=== PATIENT | male | born 1995 | race Caucasian/White ===

== ENCOUNTER 2024-11-08 11:09 | Inpatient (IN) | payer SELFPAY ==
[~2024-11-08] VITALS: Ht 177.8 cm; Wt 173.3 kg
[2024-11-08 11:43] LABS: BASOPHILS % 0.4 % (0.0-2.0); EOSINOPHILS % 2.8 % (0.0-5.0); HEMATOCRIT. 43.4 % (42.0-52.0); LYMPHOCYTES % 28.1 % (20.0-50.0); MEAN CORPUSCULAR HEMOGLOBIN 30.1 pg (28.0-32.0); MEAN CORPUSCULAR HGB CONC 34.5 g/dL (31.0-37.0); MEAN PLATELET VOLUME 8.3 fl (7.4-10.4); MONOCYTES % 6.1 % (2.0-8.0); NEUTROPHILS % 62.6 % (40.0-76.0); PLATELET 390 x1000/uL (130-400); RED BLOOD CELL COUNT 4.99 mill/uL (4.7-6.1); RED CELL DISTRIBUTION WIDTH 13.1 % (11.6-14.6); WHITE BLOOD COUNT 10.5 x1000/uL (4.5-11.0)
[2024-11-08 11:53] LABS: CHLORIDE 103 mEq/L (98-107); POTASSIUM 3.9 mEq/L (3.5-5.1); SODIUM 138 mEq/L (136-145)
[2024-11-08 11:54] LABS: CARBON DIOXIDE 27 mEq/L (21-32)
[2024-11-08 11:55] LABS: CALCIUM 9.6 mg/dL (8.7-10.4)
[2024-11-08 11:59] LABS: CREATININE 1.1 mg/dL (0.6-1.3); GLUCOSE 180 mg/dL (70-105); UREA NITROGEN BLOOD 11 mg/dL (9-23)
[2024-11-08 12:08] LABS: TROPONIN I HIGH SENSITIVITY < 4 ng/L (3.0-53)
[2024-11-08 16:00] VITALS: BP 137/87; PULSE 100; RESP 18; TEMP 36.5; O2SAT 96
[2024-11-08 17:53] LABS: TROPONIN I HIGH SENSITIVITY < 4 ng/L (3.0-53)
[2024-11-08 20:00] VITALS: BP 160/96; PULSE 83; RESP 17; TEMP 36.5; O2SAT 93
[2024-11-08] MEDS ORDERED: DOCUSATE SODIUM 100MG CAPSULE PO PRN (21:45)
[2024-11-08] MEDS ORDERED: MAGNESIUM/ALUMINUM HYDROXIDE/SIMETHICONE 30ML UDC PO PRN (21:45)
[2024-11-08] MEDS ORDERED: AMLODIPINE 10MG TABLET PO SCH (21:45)
[2024-11-08] MEDS ORDERED: ONDANSETRON HCL 4MG/2ML INJ IV PRN (21:45)
[2024-11-08] MEDS ORDERED: POTASSIUM CHLORIDE 20MEQ TABLET SR PO PRN (21:45)
[2024-11-08] MEDS ORDERED: HYDROCODONE/ACETAMINOPHEN 5/325MG TABLET PO PRN (21:45)
[2024-11-08] MEDS ORDERED: DEXTROSE 50% WATER 50ML SYRINGE IV PRN ×3 (21:45)
[2024-11-08] MEDS ORDERED: CLONIDINE 0.1MG TABLET PO PRN (21:45)
[2024-11-08] MEDS ORDERED: ACETAMINOPHEN 325MG TABLET PO PRN (21:45)
[2024-11-08] MEDS ORDERED: IPRATROPIUM/ALBUTEROL 0.5-3(2.5)MG/3ML NEB HHN PRN (21:45)
[2024-11-09] VITALS (7 sets, daily range): BP systolic 124–151; BP diastolic 62–89; PULSE 60–90; RESP 17–20; TEMP 36.2–36.6; O2SAT 92–97
[2024-11-09] MEDS: BLOOD SUGAR DIAGNOSTIC STRIP TEST SCH (06:14)
[2024-11-09] MEDS: INSULIN LISPRO 100 UNITS/ML SUBCUT SCH (06:20)
[2024-11-09 07:20] LABS: BASOPHILS % 0.3 % (0.0-2.0); HEMATOCRIT. 42.1 % (42.0-52.0); HEMOGLOBIN. 14.3 g/dL (14.0-18.0); LYMPHOCYTES % 28.7 % (20.0-50.0); MEAN CORPUSCULAR HEMOGLOBIN 29.5 pg (28.0-32.0); MEAN CORPUSCULAR HGB CONC 33.9 g/dL (31.0-37.0); MEAN CORPUSCULAR VOLUME 86.9 fL (80.0-94.0); MEAN PLATELET VOLUME 8.5 fl (7.4-10.4); MONOCYTES % 9.3 % (2.0-8.0); NEUTROPHILS % 58.7 % (40.0-76.0); PLATELET 357 x1000/uL (130-400); RED BLOOD CELL COUNT 4.85 mill/uL (4.7-6.1); RED CELL DISTRIBUTION WIDTH 13.6 % (11.6-14.6); WHITE BLOOD COUNT 9.1 x1000/uL (4.5-11.0)
[2024-11-09 07:32] LABS: CARBON DIOXIDE 29 mEq/L (21-32); CHLORIDE 101 mEq/L (98-107); POTASSIUM 4.2 mEq/L (3.5-5.1); SODIUM 138 mEq/L (136-145); TROPONIN I HIGH SENSITIVITY 5 ng/L (3.0-53)
[2024-11-09 07:33] LABS: CALCIUM 8.9 mg/dL (8.7-10.4)
[2024-11-09 07:36] LABS: T4 FREE 1.07 ng/dL (0.89-1.76)
[2024-11-09 07:37] LABS: CREATININE 0.9 mg/dL (0.6-1.3); PROTEIN TOTAL 6.8 g/dL (6.0-8.3); TRIGLYCERIDE 143 mg/dL (0-150)
[2024-11-09 07:38] LABS: GLUCOSE 116 mg/dL (70-105); UREA NITROGEN BLOOD 9 mg/dL (9-23)
[2024-11-09 07:39] LABS: ALANINE AMINOTRANSFERASE 59 IU/L (10-49); ALBUMIN 3.8 g/dL (3.2-4.8); ASPARTATE AMINOTRANSFERASE 38 IU/L (<34); LDL CHOLESTEROL 138 mg/dL (5-100)
[2024-11-09 07:40] LABS: BILIRUBIN DIRECT 0.3 mg/dL (<=3.0); BILIRUBIN TOTAL 1.1 mg/dL (0.1-1.0); CHOLESTEROL 183 mg/dL (<200); HDL CHOLESTEROL 39 mg/dL (>55); PHOSPHORUS 3.5 mg/dL (2.5-4.9)
[2024-11-09] MEDS: AMLODIPINE 5MG TABLET PO SCH (09:01)
[2024-11-09 10:39] LABS: CLARITY URINE CLEAR (CLEAR); COLOR URINE YELLOW (YELLOW); GLUCOSE URINE NEGATIVE (NEGATIVE); KETONES URINE NEGATIVE (NEGATIVE); LEUKOCYTE ESTERASE URINE NEGATIVE (NEGATIVE); NITRITE URINE NEGATIVE (NEGATIVE); OCCULT BLOOD URINE NEGATIVE (NEGATIVE); PH URINE 5.5 (4.5-8.0); PROTEIN URINE 3+ (NEGATIVE); SPECIFIC GRAVITY URINE 1.012 (1.005-1.030); UROBILINOGEN URINE 0.2 E.U./dL (0.2-1.0)
[2024-11-09 11:08] LABS: FINE GRANULAR CASTS URINE 0-5 /lpf; HYALINE CASTS URINE 0-5 /lpf
[2024-11-09 11:11] LABS: WBC URINE NONE SEEN /hpf (0-2)
[2024-11-09 11:12] LABS: BACTERIA URINE TRACE; RBC URINE 0-2 /hpf (0-2)
[2024-11-09 11:16] LABS: SQUAMOUS EPITHELIAL CELL URINE NONE SEEN /lpf (RARE/1+)
[2024-11-09 11:24] LABS: *AMPHETAMINES SCREEN URINE NEGATIVE (NEGATIVE); *BARBITURATES SCREEN URINE NEGATIVE (NEGATIVE); *BENZODIAZEPINES SCREEN URINE NEGATIVE (NEGATIVE)
[2024-11-09 11:25] LABS: *COCAINE SCREEN URINE NEGATIVE (NEGATIVE); CANNABINOID URINE SCREEN NEGATIVE (NEGATIVE); ECSTASY MDMA SCREEN URINE NEGATIVE (NEGATIVE); METHADONE URINE SCREEN NEGATIVE (NEGATIVE); OPIATES URINE SCREEN NEGATIVE (NEGATIVE); PHENCYCLIDINE URINE SCREEN NEGATIVE (NEGATIVE)
[2024-11-09] MEDS: ENOXAPARIN 40MG/0.4ML SYR SUBCUT SCH (14:32)
[2024-11-10] VITALS: BP 107/70; PULSE 70; RESP 18; TEMP 36.3; O2SAT 98
[2024-11-10 04:00] VITALS: BP 111/61; PULSE 64; RESP 17; TEMP 36.3; O2SAT 99
[2024-11-10 06:37] LABS: BASOPHILS % 0.4 % (0.0-2.0); EOSINOPHILS % 3.3 % (0.0-5.0); HEMATOCRIT. 43.2 % (42.0-52.0); HEMOGLOBIN. 14.7 g/dL (14.0-18.0); LYMPHOCYTES % 29.4 % (20.0-50.0); MEAN CORPUSCULAR HEMOGLOBIN 29.6 pg (28.0-32.0); MEAN PLATELET VOLUME 8.6 fl (7.4-10.4); MONOCYTES % 8.6 % (2.0-8.0); NEUTROPHILS % 58.3 % (40.0-76.0); PLATELET 377 x1000/uL (130-400); RED BLOOD CELL COUNT 4.97 mill/uL (4.7-6.1); RED CELL DISTRIBUTION WIDTH 13.3 % (11.6-14.6); WHITE BLOOD COUNT 8.3 x1000/uL (4.5-11.0)
[2024-11-10 07:12] LABS: CARBON DIOXIDE 28 mEq/L (21-32); CHLORIDE 102 mEq/L (98-107); POTASSIUM 4.2 mEq/L (3.5-5.1); SODIUM 138 mEq/L (136-145)
[2024-11-10 07:13] LABS: CALCIUM 9.4 mg/dL (8.7-10.4)
[2024-11-10 07:18] LABS: GLUCOSE 123 mg/dL (70-105); UREA NITROGEN BLOOD 10 mg/dL (9-23)
[2024-11-10 07:19] LABS: ALANINE AMINOTRANSFERASE 60 IU/L (10-49)
[2024-11-10 07:20] LABS: ALBUMIN 4.2 g/dL (3.2-4.8); ASPARTATE AMINOTRANSFERASE 37 IU/L (<34); BILIRUBIN DIRECT 0.2 mg/dL (<=3.0); BILIRUBIN TOTAL 1.1 mg/dL (0.1-1.0); PHOSPHORUS 3.6 mg/dL (2.5-4.9); PROTEIN TOTAL 7.3 g/dL (6.0-8.3)
[2024-11-10 08:00] VITALS: BP 127/79; PULSE 71; RESP 18; TEMP 36.2; O2SAT 100
[2024-11-10 12:00] VITALS: BP 149/63; PULSE 76; RESP 18; TEMP 36.5; O2SAT 98
[2024-11-10 16:00] VITALS: BP 122/71; PULSE 84; RESP 20; TEMP 36.5; O2SAT 96
[2024-11-10 20:00] VITALS: BP 114/62; PULSE 83; RESP 18; TEMP 36.3; O2SAT 97
[2024-11-11] VITALS: BP 106/68; PULSE 70; RESP 19; TEMP 36.3; O2SAT 95
[2024-11-11 04:00] VITALS: BP 125/59; PULSE 70; RESP 18; TEMP 36.2; O2SAT 91
[2024-11-11 08:00] VITALS: BP 146/66; PULSE 62; RESP 18; TEMP 36.1; O2SAT 97
[2024-11-11 12:00] VITALS: BP 136/87; PULSE 84; RESP 18; TEMP 35.7; O2SAT 100
[2024-11-11] MEDS ORDERED: ATOR10TA69 PO (12:07)
[2024-11-11] MEDS ORDERED: AMLO5TAB88 PO (12:07)
[2024-11-11 14:03] VITALS: BP 136/87; PULSE 84; TEMP 96.3; O2SAT 100
== END 2024-11-11 15:27 | disposition home or self-care (01) | DRG 198 ==
LOC: ER 11:09 → 5WST 12:36 → EDBEDREQ 12:49 → EDBEDREQTM 12:49
PROVIDERS: ADMIT Family Medicine Adult Medicine; ATTEND Family Medicine Adult Medicine
DX: R07.89 Other chest pain (principal); I24.9 Acute ischemic heart disease, unspecified; I31.39 Other pericardial effusion (noninflammatory); M94.0 Chondrocostal junction syndrome [Tietze]; K21.9 Gastro-esophageal reflux disease without esophagitis; E66.9 Obesity, unspecified; I10 Essential (primary) hypertension; E78.00 Pure hypercholesterolemia, unspecified; Z68.43 Body mass index [BMI] 50.0-59.9, adult; Z88.0 Allergy status to penicillin
CPT/HCPCS: 36415; 71045; 80048; 80061; 80076; 80305; 81003; 82962; 83036; 83735; 83880; 84100; 84439; 84484; 85025; 85379; 93005; 93306; 93880; 93970; 99285; A4606; J1650